=== PATIENT | female | born 1960 | race Caucasian/White ===

== ENCOUNTER 2018-11-15 08:03 | Emergency (ER) | payer OTHER ==
[~2018-11-15] VITALS: Ht 160 cm; Wt 53.5 kg
[2018-11-15 08:09] VITALS: Ht 160 cm; Wt 53.5 kg
[2018-11-15 08:59] LABS: BASOPHIL % 0.3 % (0-2); PLATELET COUNT 196 x10^3mcL (130-400); RED CELL DISTRIBUTION WIDTH 12.6 % (11.5-14.5)
[2018-11-15 09:10] LABS: CALCIUM 8.7 mg/dL (8.5-10.1); CARBON DIOXIDE 26.5 mmol/L (21-32); CHLORIDE SERUM 103 mmol/L (98-107); CREATININE SERUM 1.2 mg/dL (0.6-1.0); GFR1 49 mL/min; GLUCOSE SERUM 150 mg/dL (74-106); POTASSIUM SERUM 3.6 mmol/L (3.5-5.1); SODIUM SERUM 141 mmol/L (136-145)
[2018-11-15 09:15] LABS: ALBUMIN 3.8 g/dL (3.4-5.0); ALKALINE PHOSPHATASE 69 U/L (46-116); ALT/SGPT 22 U/L (14-59); AST/SGOT 17 U/L (15-37); LIPASE 125 IU/L (73-393); TOTAL PROTEIN, SERUM 7.2 g/dL (6.4-8.2)
[2018-11-15 09:45] LABS: UA SPECIFIC GRAVITY 1.025 (1.005-1.035); microscopic required? YES; urine erythrocyte 1+ (NEGATIVE)
[2018-11-15 12:37] VITALS: BP 100/59
[2018-11-16] MEDS ORDERED: LEVOXYL0.088 MG PO (21:18)
== END 2018-11-15 12:37 | disposition home or self-care (01) ==
LOC: ED 08:03
PROVIDERS: Emergency Medicine
DX: N13.2 Hydronephrosis with renal and ureteral calculous obstruction (principal); R11.10 Vomiting, unspecified; R19.7 Diarrhea, unspecified; E03.9 Hypothyroidism, unspecified
CPT/HCPCS: J1885; J2270; J2405; J7030

== ENCOUNTER 2018-11-16 19:14 | Inpatient (IN) | payer OTHER ==
[~2018-11-16] VITALS: Ht 160 cm; Wt 59.0 kg
[2018-11-16 19:20] VITALS: Ht 160 cm; Wt 59.0 kg
[2018-11-16 20:21] LABS: RED CELL DISTRIBUTION WIDTH 12.7 % (11.5-14.5)
[2018-11-16 20:22] LABS: PLATELET COUNT 83 x10^3mcL (130-400)
[2018-11-16 20:31] LABS: CALCIUM 7.8 mg/dL (8.5-10.1); CARBON DIOXIDE 19.7 mmol/L (21-32); POTASSIUM SERUM 4.7 mmol/L (3.5-5.1)
[2018-11-16 20:33] LABS: BAND NEUTROPHIL 4 % (0-10); SEGMENTED NEUTROPHILS 16 % (37-75)
[2018-11-16 20:35] LABS: rbc morphology (normal/abnorm) NORMAL (NORMAL)
[2018-11-16 20:36] LABS: BILIRUBIN TOTAL 1.02 mg/dL (0.20-1.00)
[2018-11-16 20:48] LABS: ALBUMIN 2.8 g/dL (3.4-5.0); TOTAL PROTEIN, SERUM 5.9 g/dL (6.4-8.2)
[2018-11-16 21:06] LABS: UA SPECIFIC GRAVITY 1.025 (1.005-1.035); microscopic required? YES; urine erythrocyte 2+ (NEGATIVE)
[2018-11-16] MEDS ORDERED: LEVOXYL0.088 MG PO (21:18)
[2018-11-17 00:33] VITALS: BP 85/48
[2018-11-17 03:21] VITALS: BP 88/57
[2018-11-17 05:38] LABS: RED CELL DISTRIBUTION WIDTH 13.3 % (11.5-14.5)
[2018-11-17 05:46] LABS: PLATELET COUNT 91 x10^3mcL (130-400)
[2018-11-17 05:54] LABS: CALCIUM 6.8 mg/dL (8.5-10.1); CARBON DIOXIDE 18.7 mmol/L (21-32); MAGNESIUM 1.5 mg/dL (1.8-2.4); POTASSIUM SERUM 3.9 mmol/L (3.5-5.1)
[2018-11-17 05:57] LABS: CREATININE SERUM 4.1 mg/dL (0.6-1.0)
[2018-11-17 05:58] LABS: BAND NEUTROPHIL 6 % (0-10); MONOCYTE 1 % (0-7); SEGMENTED NEUTROPHILS 90 % (37-75)
[2018-11-17 06:00] LABS: acanthocyte (spur cell) 1+; rbc morphology (normal/abnorm) ABNORMAL (NORMAL)
[2018-11-17 06:02] LABS: PLATELET MORPHOLOGY PLATELETS DECREASED
[2018-11-17 07:30] VITALS: BP 97/66
[2018-11-17 12:15] VITALS: BP 105/67
[2018-11-17 12:54] VITALS: BP 105/67
== END 2018-11-17 14:45 | disposition short-term general hospital (02) | DRG 871 ==
LOC: ED 19:14 → IC 23:26
PROVIDERS: Emergency Medicine; Internal Medicine Pulmonary Disease; Radiology Diagnostic Radiology; ADMIT Internal Medicine
PROC: 05H533Z Insertion of Infusion Device into Right Subclavian Vein, Percutaneous Approach (ICD-10-PCS; 2018-11-16)
PROC: 06HY33Z Insertion of Infusion Device into Lower Vein, Percutaneous Approach (ICD-10-PCS; 2018-11-16)
PROC: B54BZZA Ultrasonography of Right Lower Extremity Veins, Guidance (ICD-10-PCS; 2018-11-16)
PROC: 0T9330Z Drainage of Right Kidney Pelvis with Drainage Device, Percutaneous Approach (ICD-10-PCS; principal; 2018-11-17 13:00)
DX: A41.50 Gram-negative sepsis, unspecified (principal); R65.21 Severe sepsis with septic shock; N17.0 Acute kidney failure with tubular necrosis; I21.A1 Myocardial infarction type 2; N13.6 Pyonephrosis; I50.20 Unspecified systolic (congestive) heart failure; E03.9 Hypothyroidism, unspecified; Z82.49 Family history of ischemic heart disease and other diseases of the circulatory system; I08.1 Rheumatic disorders of both mitral and tricuspid valves; I27.20 Pulmonary hypertension, unspecified; D69.6 Thrombocytopenia, unspecified
CPT/HCPCS: 50432; C1729; C1769; C1884; G0378; J1200; J1644; J1885; J2001; J2270; J2405; J2543; J3010; J3475; J3490; J7030; J7050; Q0092; Q9967